=== PATIENT | male | born 1990 | race Caucasian/White ===

== ENCOUNTER 2019-09-11 09:10 | Emergency (ER) | payer MEDICAID ==
[~2019-09-11] VITALS: Ht 190.5 cm; Wt 160.0 kg
[2019-09-11 11:36] VITALS: BP 137/77
== END 2019-09-11 11:42 | disposition home or self-care (01) ==
LOC: ER 09:10
DX: M54.5 Low back pain (principal)
CPT/HCPCS: 99283